=== PATIENT | male | born 1970 | race Caucasian/White ===

== ENCOUNTER → 2017-12-29 00:07 | Outpatient (CLI) | payer OTHER, SELFPAY ==
--- NOTE | 2017-12-29 08:31 | DI.REPORT_ITS ---
SYMPTOM/DIAGNOSIS: CHRONIC LEFT KNEE PAIN, M25.562 LEFT KNEE: Three views. No bone or joint abnormality is identified. The soft tissues are unremarkable. IMPRESSION: Negative examination.
[2017-12-29 09:45] LABS: Anion Gap 6.1 mmol/L (3-11); BUN 17 mg/dL (7-18); CO2 27.9 mmol/L (21.0-32.0); CREATININE 1.19 mg/dL (0.70-1.30); Chloride 102 mmol/L (98-107); Glucose 98 mg/dL (70-100); Potassium 4.4 mmol/L (3.5-5.1); Sodium 136 mmol/L (136-145)
== END ==
PROVIDERS: PCP Family Medicine; Visit Provider Family Medicine
DX: M25.562 Pain in left knee (principal); G89.29 Other chronic pain; M53.9 Dorsopathy, unspecified
CPT/HCPCS: 36415; 73562; 80048

== ENCOUNTER 2017-12-30 15:50 | Emergency (ER) | payer MEDICAID, SELFPAY ==
[2017-12-30 15:57] VITALS: BP 129/83; PULSE 78; RESP 16; TEMP 36.6; O2SAT 96
--- NOTE | 2017-12-30 16:22 | ED.GENADUL ---
Disposition Clinical Impression: Seroma Disposition: HOME Condition: Good Additional Instructions: Please follow-up with your orthopedic surgeon at your scheduled appointment this coming week. Please keep the area wrapped with an Lio wrap, apply ice regularly, and take Tylenol and Motrin as needed for pain and swelling. If you notice any redness, warmth, fever, chills, worsening pain, please return immediately for reevaluation. If you notice any worsening of your symptoms, or any new symptoms such as vomiting, diarrhea, fever, chills, shortness of breath, chest pain, numbness, weakness, or fainting , please return immediately to the emergency department for reevaluation. Please follow up with your primary care provider as soon as possible for reassessment and reevaluation. As always, it was a pleasure participating in your medical care today. Referrals: Toby Pavon MD [ [facility] STAFF PHYSICIAN] - Medical Decision Making - Medical Decision Making This is a pleasant 47-year-old male who presents for evaluation of swelling near the surgical incision site that he had performed on his left elbow. There is no erythematous or warmth, and is actually slightly cooler than the other elbow. Signs and symptoms are consistent with a seroma. No evidence of infection locally or systemically. With no pain redness or warmth, I feel he can be safely discharged home. We have discussed the importance of Lio wrapping, and NSAIDs if he does develop pain. We also discussed red flags which to return including any signs or symptoms consistent with developing cellulitic lesion or abscess. The patient did request to have the area incised and drained, however I informed him that this would be deleterious to his surgery and cause more problems than good. The patient will follow-up within the next 72 hours with his orthopedic surgeon at his scheduled appointment. We discussed red flags which returned the patient understands. I have extensively reviewed the treatment plan and discharge instructions with the patient. I have addressed all patient concerns at this time. The patient was made aware of what symptoms to monitor for that would warrant a return to the emergency department. Discussed the plan with the patient, they demonstrate verbal understanding and agreement with our assessment and plan at this time. History of Present Illness - General Chief complaint: Recheck Stated complaint: UNKNOWN Time Seen by Provider: 12/30/17 16:15 - History of Present Illness Initial comments: This is a pleasant 47-year-old male who presents for evaluation of left elbow swelling. The patient had surgery weeks ago on his left elbow for a cystic lesion. After this there was notable continued drainage from this, and he eventually had a repeat surgery performed by Dr. Pavon on 20 December. He was on a full course of Bactrim DS after this, and completed the course 3 days ago. He has noticed that over the last 48 hours he has had mild swelling at the surgical incision site. He describes it as feeling like there is water under the incision site, but denies any warmth, pain, redness, or systemic symptoms of fever, chills, arm pain, chest pain, shortness of breath. He does admit to some tingling peripherally from the incision site. He denies any recent trauma, tampering with the incision site, or fluid discharge. He does have an appointment with Dr. Pavon in the next 4 days for reevaluation. He denies any IV or illicit drug use. He denies any pertinent family history. Past surgical history is positive for back surgery. He has no other complaints at this time. - Related Data Medical Marijuana PRN 04/19/17 Magnesium Amino Acid Chelate [Magnesium] 27 mg PO DAILY 10/13/17 Diclofenac Sodium 75 mg PO BID #180 tab-cap 12/26/17 Oxycodone HCl 15 mg PO Q6H PRN #100 tab-cap 12/26/17 Allergies Allergy/AdvReac Type Severity Reaction Status Date / Time fentanyl AdvReac Intermediate Tingling Unverified 12/28/17 08:40 of extremeties after 18 hours Review of Systems Other: 10 point review of systems was performed, pertinent positives and negatives are noted in the history of present illness. General Exam - Other Other exam information: 1.Const: Well-nourished, Well-developed, appearing stated age 2.Eyes: PERRL, no conjunctival injection, and symmetrical lids. 3.ENT: Atraumatic external nose and ears. Moist MM. Neck: Symmetric, trachea midline, No thyromegaly. 4.CVS: +S1/S2, No murmurs or gallops. Peripheral pulses 2+ and equal in all extremities. Brisk capillary refill in all extremities. 5.RESP: Unlabored respiratory effort. Clear to auscultation bilaterally. No wheezes rales or rhonchi 6.GI: Soft, Nontender/Nondistended, No hepatosplenomegaly. No guarding or rebound. 7.MSK: Left elbow demonstrates a well-healing surgical incision site that is clean dry and intact. Sutures are in place. No evidence of erythema, or warmth whatsoever. There is a small amount of fluctuance beneath the surgical incision site. No active drainage, no pain or tenderness on palpation. No evidence of spreading away from the incision site. Signs and symptoms are consistent with a painless nonerythematous cool seroma. Sensation is intact distal to the site. His subjective complaint of atypical sensation is circumferentially around the forearm. However sensation is intact, as his 2 point discrimination. Patient does have tenderness over the medial epicondyles, worse with percussion. 8.Skin: Incision site is clean dry and intact. Please see musculoskeletal. 9.Neuro: documentation lead II-XII grossly intact. Sensation grossly intact, no focal neurologic deficits. 10.Psych: (AAO) x3. Appropriate mood and affect Course Vital Signs - 24 hr 12/30/17 15:57 Temperature 36.6 C Pulse 78 Respiratory 16 Rate Blood Pressure 129/83 Pulse Oximetry 96
--- NOTE | 2017-12-30 16:25 | ED.GENADUL_ITS ---
Disposition Clinical Impression: Seroma Disposition: HOME Condition: Good Additional Instructions: Please follow-up with your orthopedic surgeon at your scheduled appointment this coming week. Please keep the area wrapped with an Lio wrap, apply ice regularly, and take Tylenol and Motrin as needed for pain and swelling. If you notice any redness, warmth, fever, chills, worsening pain, please return immediately for reevaluation. If you notice any worsening of your symptoms, or any new symptoms such as vomiting, diarrhea, fever, chills, shortness of breath , chest pain, numbness, weakness, or fainting , please return immediately to the emergency department for reevaluation. Please follow up with your primary care provider as soon as possible for reassessment and reevaluation. As always, it was a pleasure participating in your medical care today. Referrals: Toby Pavon MD [ [facility] STAFF PHYSICIAN] - Medical Decision Making - Medical Decision Making This is a pleasant 47-year-old male who presents for evaluation of swelling near the surgical incision site that he had performed on his left elbow. There is no erythematous or warmth, and is actually slightly cooler than the other elbow. Signs and symptoms are consistent with a seroma. No evidence of infection locally or systemically. With no pain redness or warmth, I feel he can be safely discharged home. We have discussed the importance of Lio wrapping, and NSAIDs if he does develop pain. We also discussed red flags which to return including any signs or symptoms consistent with developing cellulitic lesion or abscess. The patient did request to have the area incised and drained, however I informed him that this would be deleterious to his surgery and cause more problems than good. The patient will follow-up within the next 72 hours with his orthopedic surgeon at his scheduled appointment. We discussed red flags which returned the patient understands. I have extensively reviewed the treatment plan and discharge instructions with the patient. I have addressed all patient concerns at this time. The patient was made aware of what symptoms to monitor for that would warrant a return to the emergency department. Discussed the plan with the patient, they demonstrate verbal understanding and agreement with our assessment and plan at this time. History of Present Illness - General Chief complaint: Recheck Stated complaint: UNKNOWN Time Seen by Provider: 12/30/17 16:15 - History of Present Illness Initial comments: This is a pleasant 47-year-old male who presents for evaluation of left elbow swelling. The patient had surgery weeks ago on his left elbow for a cystic lesion. After this there was notable continued drainage from this, and he eventually had a repeat surgery performed by Dr. Pavon on 20 December. He was on a full course of Bactrim DS after this, and completed the course 3 days ago. He has noticed that over the last 48 hours he has had mild swelling at the surgical incision site. He describes it as feeling like there is water under the incision site, but denies any warmth, pain, redness, or systemic symptoms of fever, chills, arm pain, chest pain, shortness of breath. He does admit to some tingling peripherally from the incision site. He denies any recent trauma , tampering with the incision site, or fluid discharge. He does have an appointment with Dr. Pavon in the next 4 days for reevaluation. He denies any IV or illicit drug use. He denies any pertinent family history. Past surgical history is positive for back surgery. He has no other complaints at this time. - Related Data Medical Marijuana PRN 04/19/17 Magnesium Amino Acid Chelate [Magnesium] 27 mg PO DAILY 10/13/17 Diclofenac Sodium 75 mg PO BID #180 tab-cap 12/26/17 Oxycodone HCl 15 mg PO Q6H PRN #100 tab-cap 12/26/17 Allergies Allergy/AdvReac Type Severity Reaction Status Date / Time fentanyl AdvReac Intermediate Tingling Unverified 12/28/17 08:40 of extremeties after 18 hours Review of Systems Other: 10 point review of systems was performed, pertinent positives and negatives are noted in the history of present illness. General Exam - Other Other exam information: 1.Const: Well-nourished, Well-developed, appearing stated age 2.Eyes: PERRL, no conjunctival injection, and symmetrical lids. 3.ENT: Atraumatic external nose and ears. Moist MM. Neck: Symmetric, trachea midline, No thyromegaly. 4.CVS: +S1/S2, No murmurs or gallops. Peripheral pulses 2+ and equal in all extremities. Brisk capillary refill in all extremities. 5.RESP: Unlabored respiratory effort. Clear to auscultation bilaterally. No wheezes rales or rhonchi 6.GI: Soft, Nontender/Nondistended, No hepatosplenomegaly. No guarding or rebound. 7.MSK: Left elbow demonstrates a well-healing surgical incision site that is clean dry and intact. Sutures are in place. No evidence of erythema, or warmth whatsoever. There is a small amount of fluctuance beneath the surgical incision site. No active drainage, no pain or tenderness on palpation. No evidence of spreading away from the incision site. Signs and symptoms are consistent with a painless nonerythematous cool seroma. Sensation is intact distal to the site. His subjective complaint of atypical sensation is circumferentially around the forearm. However sensation is intact, as his 2 point discrimination. Patient does have tenderness over the medial epicondyles , worse with percussion. 8.Skin: Incision site is clean dry and intact. Please see musculoskeletal. 9.Neuro: rn orthopaedics II-XII grossly intact. Sensation grossly intact, no focal neurologic deficits. 10.Psych: (AAO) x3. Appropriate mood and affect Course Vital Signs - 24 hr 12/30/17 15:57 Temperature 36.6 C Pulse 78 Respiratory 16 Rate Blood Pressure 129/83 Pulse Oximetry 96
== END 2017-12-30 16:28 | disposition home or self-care (01) ==
PROVIDERS: Emergency Provider Student in an Organized Health Care Education/Training Program; PCP Family Medicine
DX: L76.34 Postprocedural seroma of skin and subcutaneous tissue following other procedure (principal); Y83.8 Other surgical procedures as the cause of abnormal reaction of the patient, or of later complication, without mention of misadventure at the time of the procedure
CPT/HCPCS: 99282

== ENCOUNTER 2018-02-18 14:45 | Emergency (ER) | payer MEDICAID, SELFPAY ==
[2018-02-18 14:52] VITALS: BP 121/88; PULSE 75; RESP 16; TEMP 36.6; O2SAT 97
[2018-02-18] MEDS: Balanced Salt Solution 15 ML BTL (15:15)
[2018-02-18] MEDS: Tetracaine 0.5% 4 ML BTL (15:15)
--- NOTE | 2018-02-18 15:36 | ED.GENADUL_ITS ---
Discharge Plan Disposition Patient Disposition: HOME Discharge Details Chief Complaint: EyeProblem Clinical Impression: Foreign body in cornea, left eye, initial encounter, Corneal rust ring of left eye Primary Care Provider: Melecio Rodriguez ED Provider: Dickson Rankin Home Meds and New Rx's Prescriptions: Continue magnesium amino acid chelate 27 MG tablet 27 mg PO DAILY RF: 0 diclofenac sodium 75 MG tablet,delayed release (DR/EC) 75 mg PO BID Qty: 180 RF: 3 oxycodone 15 mg tablet, oral only 15 mg PO Q6H PRN (Reason: pain) Qty: 28 RF: 0 multivitamin Tablet 1 tab PO DAILY RF: 0 Medical Marijuana PRNRF: 0 Discontinued oxycodone 15 mg tablet 15 mg PO Q6H PRN Qty: 100 RF: 0 Discharge Instructions Additional Instructions: Please apply antibiotic ointment, 1 inch written to left eye 4 times a day for the next 1 week. Please follow-up tomorrow with data warehouse specialist. Please contact your primary care physician to arrange follow-up. Return to the ER for any worsening or new concerning symptoms. Referrals: [facility] [place] [Outside] Discharge Data Discharge Date/Time-TO BE ENTERED AT DEPARTURE: 02/18/18 16:28 Medical Decision Making 15:30 --48-year-old male here with sensation of foreign body in his left eye since yesterday after exposed to grinding metal or paint. Fluorescein stain applied and I examined under Jackson lamp with no corneal abrasion Slit-lamp exam performed and there is a tiny foreign body with rust ring mid cornea. I removed a tiny foreign body from the cornea. Rust ring remained. Plan to provide erythromycin ophthalmic ointment and have him follow-up with ophthalmology tomorrow. I stressed the importance of timely followup tomorrow - patient verbalized understanding of discharge instructions. Will give tetanus proph. HPI General Mode of arrival: ambulatory . Date/Time Provider Initiated Documentation: 02/18/18 14:49 . Limitations to Documentation: no limitations . Information obtained by: patient . HPI Narrative: 48-year-old male here with sensation of foreign body in his left eye since yesterday after exposed to grinding metal or paint. Sensation is moderate. Persistent. Worse with blinking. No visual change. Related Data Home Medications Medication Instructions Recorded Confirmed Medical Marijuana PRN 11/22/17 magnesium amino acid chelate 27 mg PO DAILY 10/13/17 02/18/18 diclofenac sodium 75 mg PO BID #180 tab-cap 12/26/17 02/18/18 oxycodone 15 mg tablet,oral ONLY 15 mg PO Q6H PRN #28 tab 02/09/18 02/18/18 (not feeding tubes) multivitamin 1 tab PO DAILY 02/18/18 02/18/18 Previous Rx's Medication Instructions Recorded diclofenac sodium 75 mg PO BID #180 tab-cap 12/26/17 oxycodone 15 mg tablet,oral ONLY 15 mg PO Q6H PRN #28 tab 02/09/18 (not feeding tubes) Allergies Allergy/AdvReac Type Severity Reaction Status Date / Time fentanyl AdvReac Intermediate Tingling Unverified 02/18/18 14:55 of extremeties after 18 hours General Stated Complaint: EyeProblem GLORIA: 3 Review of Systems Eyes Reports as per [facility] Family History Father Myocardial infarction Mother Heart disease Sister MEN 1 (multiple endocrine neoplasia) Brother No problems noted. Son No problems noted. Son No problems noted. Daughter No problems noted. Daughter No problems noted. Daughter Hyperlipidemia Family history Depression Hyperlipidemia Social History Smoking/Tobacco Use Status: Current every day Surgical History Orchiectomy, Radical Repair of inguinal hernia (04/19/17) Vasectomy back surgery Exam Const General: comfortable, no acute distress and well developed Orientation: alert Eyes Alignment and Position: alignment normal Periorbital: periorbital findings normal Eyelids: eyelids normal Conjunctivae: conjunctival abnormality left (mild injection) Sclera: sclerae normal Cornea: corneas abnormal on the left foreign body (tiny) with rust ring present and fluorescein used Pupils: PERRL EOM: EOM intact bilaterally Skin Other: no facial rash Course Vital Signs Temperature 36.6 C 02/18/18 14:52 Pulse 75 02/18/18 14:52 Respiratory Rate 16 02/18/18 14:52 Blood Pressure 121/88 02/18/18 14:52 Pulse Oximetry 97 02/18/18 14:52 Temperature 36.6 C 02/18/18 14:52 Temperature Source Skin 02/18/18 14:52 Pulse 75 02/18/18 14:52 Respiratory Rate 16 02/18/18 14:52 Respiratory Effort Non-Labored 02/18/18 14:52 Blood Pressure 121/88 02/18/18 14:52 Blood Pressure Position Sitting 02/18/18 14:52 Pulse Oximetry 97 02/18/18 14:52 Oxygen Delivery Method Room Air 02/18/18 14:52 Oxygen Flow Rate 0 02/18/18 14:52 Pain Level 0 02/18/18 14:52
[2018-02-18] MEDS: Erythromycin Ophth Oint 3.5 GM TUBE (16:23)
--- NOTE | 2018-02-19 12:00 | PDOC.ERCMPRO ---
Care Management Progress Note 02/19/18-Pt was seen 02/18/18 for foreign body removal out of cornea by Dr. Goyo lucio. Pt was seen by [facility] this am.
== END 2018-02-18 16:28 | disposition home or self-care (01) ==
PROVIDERS: Emergency Provider Student in an Organized Health Care Education/Training Program; PCP Family Medicine
DX: T15.02XA Foreign body in cornea, left eye, initial encounter (principal); W31.1XXA Contact with metalworking machines, initial encounter
CPT/HCPCS: 65222; 90471

== ENCOUNTER 2018-10-17 01:47 | Outpatient (CLI) | payer MEDICAID, SELFPAY ==
--- NOTE | 2018-10-17 13:14 | DI.CT_ITS ---
SYMPTOMS/DIAGNOSIS: PAIN, R52; ASSESS LEVEL OF FUSION FROM PREVIOUS LUMBAR FUSION CT OF THE LUMBAR SPINE: Comparison is made with October,. Previous posterior fusion hardware is again noted from L4 through S1. Disc spaces are seen at the L4-5 and L5-S1 discs. A screw is seen in the anterior right side of the L5 vertebral body. There is sclerosis within the L4, L5 and superior aspect of the S1 vertebral bodies. The position of the hardware appears unchanged. The L1-2, L2-3 and L3- 4 disc spaces are well maintained. Slight disc bulging is seen at L3-4. IMPRESSION: Stable appearance of posterior spinal fusion from L4 through S1.
== END 2018-10-17 02:07 ==
PROVIDERS: PCP Family Medicine; Visit Provider Family Medicine
DX: M54.5 Low back pain (principal); Z98.1 Arthrodesis status
CPT/HCPCS: 72131

== ENCOUNTER 2018-10-17 01:47 | Outpatient (CLI) | payer OTHER, SELFPAY ==
--- NOTE | 2018-10-17 12:50 | DI.RAD_ITS ---
SYMPTOMS/DIAGNOSIS: INTERMITTENT CHEST PAIN, R07.9, CHRONIC, LEFT SIDED PA AND LATERAL CHEST: A pectus excavatum deformity is seen. There is minimal blunting at the costophrenic angles, which appears unchanged from an exam from 2008. No infiltrate, effusion or pneumothorax is seen. No mass is visible. IMPRESSION: Chronic blunting at the left costophrenic angles. No acute abnormality.
== END 2018-10-17 02:07 ==
PROVIDERS: PCP Family Medicine; Visit Provider Physician Assistant
DX: R07.9 Chest pain, unspecified (principal); J94.8 Other specified pleural conditions
CPT/HCPCS: 71046

== ENCOUNTER 2018-12-12 08:22 | Outpatient (CLI) | payer MEDICARE, MEDICAID, SELFPAY | END 2018-12-12 08:42 | PROVIDERS: PCP Family Medicine; Referring Provider Family Medicine; Visit Provider Student in an Organized Health Care Education/Training Program | DX: R55 Syncope and collapse (principal) | CPT/HCPCS: 93228 ==

== ENCOUNTER 2019-02-04 13:38 | Outpatient (REF) | payer MEDICARE, MEDICAID, SELFPAY ==
[2019-02-07 11:56] LABS: 6-monoacetylmorphine Not Detected ng/mL (Cutoff: 25); Amphetamines Negative ng/mL (Cutoff: 500); Barbiturates Negative ng/mL (Cutoff: 200); Benzodiazepines Negative ng/mL (Cutoff: 100); Buprenorphine Not Detected ng/mL (Cutoff: 5); Cocaine Negative ng/mL (Cutoff: 150); Codeine Not Detected ng/mL (Cutoff: 25); Comment Normal; Creatinine, U 65.3 mg/dL; Dihydrocodeine Not Detected ng/mL (Cutoff: 25); EDDP Not Detected ng/mL (Cutoff: 25); Fentanyl Not Detected ng/mL (Cutoff: 2); Hydrocodone Not Detected ng/mL (Cutoff: 25); Hydromorphone Not Detected ng/mL (Cutoff: 25); Hydromorphone-3-beta-glucuroni Not Detected ng/mL (Cutoff: 100); Meperidine Not Detected ng/mL (Cutoff: 25); Methadone Not Detected ng/mL (Cutoff: 25); Morphine Not Detected ng/mL (Cutoff: 25); N-desmethyltapentadol Not Detected ng/mL (Cutoff: 50); Naloxone Not Detected ng/mL (Cutoff: 25); Norbuprenorphine Not Detected ng/mL (Cutoff: 5); Norfentanyl Not Detected ng/mL (Cutoff: 2); Norhydrocodone Not Detected ng/mL (Cutoff: 25); Normeperidine Not Detected ng/mL (Cutoff: 25); Noroxycodone Present ng/mL (Cutoff: 25); Noroxymorphone Present ng/mL (Cutoff: 25); O-desmethyltramadol Not Detected ng/mL (Cutoff: 25); Phencyclidine Negative ng/mL (Cutoff: 25); Propoxyphene Not Detected ng/mL (Cutoff: 25); Tapentadol Not Detected ng/mL (Cutoff: 25); Tetrahydrocannabinol Presumptive Positive ng/mL (Cutoff: 50); Tramadol Not Detected ng/mL (Cutoff: 25); pH 6.3
[2019-02-07 15:42] LABS: Carboxy-THC Interpretation Positive.; Delta-9 CarboxyThc by LC-MS/MS 437 ng/mL (Cutoff:<3)
== END 2019-02-04 13:58 ==
LOC: LBN 13:38
PROVIDERS: PCP Family Medicine; Visit Provider Nurse Practitioner Family
DX: M53.3 Sacrococcygeal disorders, not elsewhere classified (principal); M96.1 Postlaminectomy syndrome, not elsewhere classified; Z79.891 Long term (current) use of opiate analgesic
CPT/HCPCS: 80307; 80349; 80364

== ENCOUNTER 2019-04-04 07:54 | Outpatient (CLI) | payer OTHER, SELFPAY ==
[2019-04-04 07:59] VITALS: BP 120/83; PULSE 73; RESP 18; TEMP 36.1; O2SAT 98
--- NOTE | 2019-04-04 08:09 | PDOC.PAIN_ITS ---
Pain Clinic Procedure Note Procedure Note Procedure Note: INTRA-ARTICULAR SI JOINT INJECTION Date of Service: April 04, 2019 Patient: CALEB OWEN Provider: Rhonda Phipps MD COMMENTS: patient suffered a work related injury that causes him to have persistent back and leg pain. he was most recently seen by Nena Whiting in our pain clinic who recommended a trial of left sacroiliac joint injection for symptomatic relief. Pre-operative diagnosis: disorder of sacrum Post-operative diagnosis: same as above CALEB OWEN has been referred to the [facility] for intra-articular SI joint injection. He was interviewed and the medical record reviewed. There were no medical, pharmacologic, radiographic or other structural contraindications to attempting fluoroscopically guided intra-articular SI joint injection. Risks and expected side effects as well as potential benefit of the procedure were reviewed with CALEB , and his voiced concerns were addressed. The printed consent form was signed and witnessed. Standard time-out procedure was performed. CALEB was placed in the prone position on the fluoroscopy table and automated blood pressure cuff and pulse oximeter applied. The skin entry point for approaching the left sacroiliac joint was identified under the most advantageous fluoroscopic view and marked. Following thorough Chlorhexadine preparation of the skin and draping and 1% lidocaine infiltration of the skin entry point and subcutaneous tissues, a 22 gauge spinal needle was placed under fluoroscopic guidance into the left sacroiliac joint. Intra-articular placement was confirmed by a clear arthrogram resulting from the injection of 0.25ml Omnipaque 240. 1 ml 1% Lidocaine and 40mg Depomedrol (80mg/ml) was injected intra- articularily with an initial reproduction of a significant component of the usual pain. The needle was flushed with 0.5 cc of 1% Lidocaine and removed without difficulty. (49 cc of Omnipaque was wasted) CALEB s vital signs were stable throughout the procedure and were as recorded in the docflowsheet by the nursing staff. If given, dosages of intravenous drugs for anxiolysis and analgesia were documented in MAR. Follow up plans and appointments were discussed with the CALEB . Post procedure instruction was given as documented in nursing documentation and having met discharge criteria, CALEB was discharged from the [facility]. COMMENTS: No complications. if this provides significant pain relief, then this can be repeated. F/U with Nena Whiting on prn basis. I personally performed this entire procedure. Rhonda Phipps MD ABPN-subspecialty board certification in Pain Medicine Attending Physician-Pain Management
[2019-04-04] MEDS: Omnipaque 240 MG/ML 50 ML BTL IJ (08:32)
[2019-04-04] MEDS: methylPREDNISolone ACETATE 80 MG/ML VIAL IJ (08:33)
[2019-04-04 08:35] VITALS: BP 114/77; PULSE 61; RESP 22; O2SAT 97
--- NOTE | 2019-04-04 08:39 | DI.RAD_ITS ---
EXAM: XR PAIN CLINIC SACRIOILIAC 2V CLINICAL HISTORY: Dx: Sacroiliac Joint Dysfunction,SACROILIAC JOINT INJECTION TECHNIQUE: Realtime digital imaging was performed. COMPARISON: No exams were available for comparison FINDINGS: C-arm fluoroscopy was utilized by Dr. Phipps during SI joint injection. Hard copy shows needle overlyin g what appears to be marked as the left SI joint. FLUORO TIME: 36.1 seconds
== END 2019-04-04 08:14 ==
PROVIDERS: PCP Family Medicine; Visit Provider Internal Medicine
DX: M53.3 Sacrococcygeal disorders, not elsewhere classified (principal)
CPT/HCPCS: 27096; 72200; J1040; Q9967

== ENCOUNTER 2020-05-07 05:19 | Outpatient (CLI) | payer MEDICARE, MEDICAID, SELFPAY ==
[2020-05-07 10:51] LABS: ALT 25 U/L (16-63); AST 20 U/L (15-37); Albumin 3.9 g/dL (3.4-5.0); Alkaline Phosphatase 69 U/L (46-116); Anion Gap 6.9 mmol/L (3-11); BUN 10 mg/dL (7-18); Bilirubin, Total 0.6 mg/dL (0.2-1.0); CO2 30.1 mmol/L (21.0-32.0); Calcium 9.1 mg/dL (8.5-10.1); Calculated LDL 62 mg/dL (<100); Chloride 101 mmol/L (98-107); Cholesterol 161 mg/dL (<200); Glucose 104 mg/dL (74-106); HDL Cholesterol 81 mg/dL (40-60); Potassium 4.3 mmol/L (3.5-5.1); Sodium 138 mmol/L (136-145); TSH (W/Ref FT4) 1.27 uIU/mL (0.36-3.74); Total Protein 7.3 g/dL (6.4-8.2); Triglyceride 91 mg/dL (<150)
[2020-05-08 09:19] LABS: Parathyroid Hormone,Intact 56 pg/mL (19-88)
== END 2020-05-07 05:39 ==
PROVIDERS: PCP Nurse Practitioner Family; Visit Provider Nurse Practitioner Family
DX: R73.01 Impaired fasting glucose (principal); F32.9 Major depressive disorder, single episode, unspecified; Z83.41 Family history of multiple endocrine neoplasia [MEN] syndrome; Z82.49 Family history of ischemic heart disease and other diseases of the circulatory system
CPT/HCPCS: 36415; 80053; 80061; 83036; 83970; 84443

== ENCOUNTER → 2022-04-20 01:43 | Outpatient (CLI) | payer MEDICARE, SELFPAY ==
--- NOTE | 2022-04-20 08:10 | DI.CTLCSR_ITS ---
Exam(s) CT CHEST LUNG CANCER SCREEN EXAM: CT CHEST LUNG CANCER SCREEN CLINICAL HISTORY: Screening for lung cancer,CURRENT SMOKER, F17.210 TECHNIQUE: Imaging Protocol: Axial computed tomography images with coronal and sagittal reformatted images were created and reviewed COMPARISON: CR XR CHEST 2V PA LATERAL from 10/17/2018 FINDINGS: The examination is limited due to patient motion artifact. Tracheobronchial tree: Patent where visualized. Pulmonary parenchyma: No consolidation or dominant measurable mass. Okyn-gu-cpyfvims emphysematous ch anges are present. Lung Nodules: There is a 1.0 x 0.9 cm noncalcified soft tissue nodule in the left lower lobe. Mediastinum and Kristen: No dominant adenopathy or fluid collection. The esophagus is unremarkable. Thyroid gland: Unremarkable. Lymph nodes: Unremarkable. Pleura: No effusion or pneumothorax. There is mild pleural scarring in the left lower lobe. Heart: The heart is not dilated. No coronary artery calcifications are seen. No pericardial effusion . Aorta: Thoracic aorta non-dilated.Mild atherosclerosis is present. Upper abdomen: Unremarkable. Soft Tissues: Unremarkable. Bones: Within normal limits for the patient's age. IMPRESSION: 1.0 x 0.9 cm soft tissue nodule in the left lower lobe. Lung RADS Cat 4A - Suspicious: Findings for which additional diagnostic testing and/or tissue samplin g recommended Lung-RADS 1.0 CATEGORIES: Category 0 - Prior chest CT exam(s) being located for comparison. Category 1 - Annual screening in 12 months. No nodules or definitely benign nodules. Category 2 - Annual screening in 12 months. Benign appearance. Nodules with low likelihood of becomin g active cancer. Category 3 - 6-month follow-up. Probably benign. Short-term follow-up suggested. Nodules with low lik elihood of becoming active cancer. Category 4A - 3-month follow-up and CT/PET if >8 mm in size. Suspicious finding. Findings which requi re additional testing. Category 4B - Findings which require additional testing and tissue sampling. Suspicious finding. Category 4X - Category 3 or 4 nodules with additional features or imaging findings that increases the suspicion of malignancy. Modifier S- Potentially clinically significant finding. (Non lung cancer) RADIATION DOSE DELIVERED: Total DLP !Error CTDIvol Total DLP !Error CTDIvol DATA REPOSITORY: All CT scans at this facility are submitted to the National Radiology Data Registry (NRDR) Dose Index Registry (DIR) with the [employer] (A[employer]). RADIATION OPTIMIZATION: All CT scans at this facility use at least one of these dose optimization te chniques: automated exposure control; mA and/or kV adjustment per patient size (includes targeted exa ms where dose is matched to clinical indication); or iterative reconstruction.
== END ==
PROVIDERS: PCP Nurse Practitioner Family; Visit Provider Nurse Practitioner Family
DX: Z12.2 Encounter for screening for malignant neoplasm of respiratory organs (principal); F17.210 Nicotine dependence, cigarettes, uncomplicated; R91.1 Solitary pulmonary nodule; J43.8 Other emphysema; J98.4 Other disorders of lung
CPT/HCPCS: 71271

== ENCOUNTER 2022-04-20 02:58 | Outpatient (CLI) | payer MEDICARE, SELFPAY ==
[2022-04-20 09:01] LABS: Anion Gap 8.1 mmol/L (3-11); BUN 15 mg/dL (7-18); CO2 28.9 mmol/L (21.0-32.0); Calcium 9.4 mg/dL (8.5-10.1); Chloride 98 mmol/L (98-107); Estimated GFR 91.12 (mL/min/1.73m2); Glucose 143 mg/dL (74-106); Potassium 3.7 mmol/L (3.5-5.1); Sodium 135 mmol/L (136-145)
[2022-04-21 09:43] LABS: PSA, Screening 0.3 ng/mL (<=3.5)
== END 2022-04-20 02:59 | disposition home or self-care (01) ==
LOC: LBO 02:58
PROVIDERS: PCP Nurse Practitioner Family; Visit Provider Nurse Practitioner Family
DX: M54.16 Radiculopathy, lumbar region (principal); Z79.891 Long term (current) use of opiate analgesic; N40.0 Benign prostatic hyperplasia without lower urinary tract symptoms; Z12.5 Encounter for screening for malignant neoplasm of prostate
CPT/HCPCS: 36415; 71271; 80048; 84153

== ENCOUNTER 2022-07-13 00:02 | Outpatient (CLI) | payer MEDICARE, MEDICAID, SELFPAY ==
--- NOTE | 2022-07-13 06:43 | DI.CT_ITS ---
Exam(s) CT CHEST WO EXAM: CT CHEST WO CLINICAL HISTORY: f/u LLL nodule growth,R91.1. TECHNIQUE: Imaging protocol: Axial computed tomography images were obtained and coronal and sagittal reformatted images were created and reviewed. CONTRAST MATERIAL: Noncontrast COMPARISON: CT CT lumbar spine wo from 10/17/2018 CR XR CHEST 2V PA LATERAL from 10/17/[address] CHEST LUNG CANCER SCREEN from 04/20/2022 FINDINGS: Pulmonary parenchyma: Scarring posterior left lung base. No consolidation. Slight interval increase in size left lower lobe pulmonary nodule, measuring 10 x 10.7 by 8.6 cm compared with 10 x 9 by 8.6 c m Emphysema: [id number] centrilobular and paraseptal emphysema greatest in upper lobes. Tracheobronchial tree: No mucous plugging. No bronchiectasis . Interstitial changes: None. Pleura: No effusion or pneumothorax. Heart: The heart is mildly dilated. The coronary arteries show mildcalcifications. Aorta: Thoracic aorta non-dilated. Mildatherosclerotic changes. Lymph nodes: No enlarged lymph nodes. Bones: Degenerative changes are seen. No evidence of compression fracture. Upper abdomen: Unremarkable. IMPRESSION: Show slight interval increase in size of left lower lobe pulmonary nodule versus measurement error. P ET CT or tissue sampling should be considered for further evaluation. Lung RADS Cat 4A - Suspicious: Findings for which additional diagnostic testing and/or tissue samplin g recommended RADIATION DOSE DELIVERED: 430.35mGy.cm Total DLP 430.35mGy.cm Total DLP DATA REPOSITORY: All CT scans at this facility are submitted to the National Radiology Data Registry (NRDR) Dose Index Registry (DIR) with the [employer] ([employer]). RADIATION OPTIMIZATION: All CT scans at this facility use at least one of these dose optimization te chniques: automated exposure control; mA and/or kV adjustment per patient size (includes targeted exa ms where dose is matched to clinical indication); or iterative reconstruction. jose
== END 2022-07-13 00:22 ==
PROVIDERS: PCP Nurse Practitioner Family; Visit Provider Student in an Organized Health Care Education/Training Program
DX: R91.1 Solitary pulmonary nodule (principal)
CPT/HCPCS: 71250

== ENCOUNTER 2024-02-05 09:15 | Outpatient (CLI) | payer MEDICARE, MEDICAID, SELFPAY ==
[2024-02-05 08:15] LABS: HCT 43.4 % (40.0-50.0); HGB 14.6 g/dL (13.5-17.5); MCH 30.3 pg (27.0-33.0); MCHC 33.6 % (32.0-36.0); MCV 90 fL (80-95); MPV 9.7 fL (8.0-11.0); Platelet Count 238 10^3/uL (130-400); RBC 4.82 10^6/uL (4.36-5.78); RDW 13.6 % (11.8-14.1); RDW-SD 45.3 fL; WBC 8.08 10^3/uL (4.4-10.8)
[2024-02-05 08:43] LABS: ALT 22 U/L (16-63); AST 18 U/L (15-37); Albumin 3.6 g/dL (3.4-5.0); Alkaline Phosphatase 80 U/L (46-116); Anion Gap 5.8 mmol/L (3-11); BUN 12 mg/dL (7-18); Bilirubin, Total 0.32 mg/dL (0.2-1.0); CO2 30.2 mmol/L (21.0-32.0); Calcium 8.8 mg/dL (8.5-10.1); Calculated LDL 75 mg/dL (<100); Chloride 101 mmol/L (98-107); Cholesterol 147 mg/dL (<200); Estimated GFR 90.56 (mL/min/1.73m2); Glucose 111 mg/dL (74-106); HDL Cholesterol 59 mg/dL (40-60); Potassium 3.4 mmol/L (3.5-5.1); Sodium 137 mmol/L (136-145); Total Protein 7.3 g/dL (6.4-8.2); Triglyceride 65 mg/dL (<150)
[2024-02-05 18:19] LABS: PSA, Screening 0.4 ng/mL (<=3.5)
[2024-02-05 19:30] LABS: HBs Antibody, Quant <3.1 mIU/mL (See Note); Hep B Surface Ab Negative (See Note); Hepatitis B Core Antibody Negative (Negative); Hepatitis B Surface Antigen Negative (Negative)
[2024-02-05 19:33] LABS: HIV-1/2 Ag & Ab Screen Negative (Negative)
[2024-02-05 19:37] LABS: Hepatitis C Ab w Rflx HCV PCR Negative (Negative)
== END 2024-02-05 09:16 | disposition home or self-care (01) ==
LOC: LBO 09:16
PROVIDERS: PCP Nurse Practitioner Family; Visit Provider Nurse Practitioner Family
DX: Z00.00 Encounter for general adult medical examination without abnormal findings (principal); Z11.4 Encounter for screening for human immunodeficiency virus [HIV]; Z11.59 Encounter for screening for other viral diseases; Z12.5 Encounter for screening for malignant neoplasm of prostate
CPT/HCPCS: 36415; 80053; 80061; 84153; 85027; 86704; 86706; 86803; 87340; 87389